=== PATIENT | female | born 2000 | race Hispanic/Latino ===

== ENCOUNTER 2020-10-18 05:53 | Emergency (ER) | payer BC ==
[2020-10-18] MEDS ORDERED: Metoclopramide HCl 10 MG/2 ML VIAL ONE (06:44)
[2020-10-18] MEDS ORDERED: diphenhydrAMINE 50 MG/ML VIAL ONE (06:44)
[2020-10-18 08:05] LABS: Bacteria/HPF None Seen HPF (None Seen); Bilirubin Negative (Negative); Blood, Urine Negative (Negative); Clarity Turbid (Clear); Glucose, Urine (Dipstick) Normal (Negative); Ketone, Urine Greater than 150 mg/dL (Negative); Leukocyte 25 Leu/uL (Negative); Nitrite Negative (Negative); Protein, Urine (Dipstick) 70 mg/dL (Neg-Trace); RBC/HPF 0-3 HPF (0-3); Specific Gravity, Urine 1.036 (1.002-1.036); Squamous Epithelial 21-50 HPF (0-3); WBC/HPF 0-3 HPF (0-3)
== END 2020-10-18 08:44 | disposition home or self-care (01) ==
LOC: ERS 05:53
DX: O21.9 Vomiting of pregnancy, unspecified (principal); O99.891 Other specified diseases and conditions complicating pregnancy; R51.9 Headache, unspecified; Z3A.16 16 weeks gestation of pregnancy
CPT/HCPCS: 81003; 81015; 96365; 96375; J1200; J2765